=== PATIENT | male | born 1940 | race Caucasian/White ===

== ENCOUNTER 2022-02-23 00:03 | Inpatient (IN) | payer OTHER ==
[~2022-02-23] VITALS: Ht 185.4 cm; Wt 103.9 kg
[2022-02-23 00:24] VITALS: BP_SYST 124
--- NOTE | 2022-02-23 00:27 | NUR ---
Triaged pt and placed in waiting room until a bed becomes available. Dr. Aguilar notified. Pt is A&Ox4. VSS. Accompanied by .
--- NOTE | 2022-02-23 02:10 | NUR ---
Patient to ER bed 7 to gown for evaluation. Side rails up.
--- NOTE | 2022-02-23 02:32 | NUR ---
# 20 gauge angiocath placed to left forearm. Use of asceptic technique. Opsite placed over site. Blood return noted. Blood for lab drawn from site. Flushed with 10 cc of normal saline. No evidence of infiltration noted. Patient tolerated well.
--- NOTE | 2022-02-23 02:44 | NUR ---
Ila Jalloh at bedside examining patient.
[2022-02-23 03:05] LABS: BASOPHILS # (AUTO) 0.1 K/uL (0.0-0.2); BASOPHILS % (AUTO) 1.3 % (0.0-2.0); EOSINOPHILS # (AUTO) 0.3 K/uL (0.0-0.4); EOSINOPHILS % (AUTO) 3.4 % (0.0-4.0); HEMATOCRIT 40.3 % (36-54); HEMOGLOBIN 13.4 g/dL (14.0-18.0); LYMPHOCYTES # (AUTO) 1.5 K/uL (1.0-5.5); LYMPHOCYTES % (AUTO) 19.2 % (20.5-51.5); MEAN CORPUSCULAR HEMOGLOBIN 31 pg (27-31); MEAN CORPUSCULAR HGB CONC 33 % (32-36); MEAN CORPUSCULAR VOLUME 93 fL (79.0-98.0); MONOCYTES % (AUTO) 12.3 % (1.7-9.3); NEUTROPHILS # (AUTO) 5.2 K/uL (1.8-7.7); NEUTROPHILS % (AUTO) 63.8 % (40.0-70.0); PLATELET COUNT (AUTO) 329 K/uL (130-430); RED BLOOD CELL COUNT(AUTO) 4.32 MIL/uL (4.2-6.2); RED CELL DISTRIBUTION WIDTH 14.6 % (9.0-15.0); WHITE BLOOD COUNT (AUTO) 8.1 K/uL (4.8-10.8)
--- NOTE | 2022-02-23 03:07 | NUR ---
AEROBIC AND ANAEROBIC WOUND CULTURES TAKEN FROM PT AND SENT TO LAB FOR ANALYSIS
[2022-02-23 03:08] LABS: BILIRUBIN,URINE NEGATIVE (NEGATIVE); BLOOD, URINE NEGATIVE (NEGATIVE); CLARITY/URINE CLEAR (CLEAR); COLOR,URINE YELLOW (YELLOW); GLUCOSE,URINE 3+ (NEGATIVE); KETONES,URINE 2+ (NEGATIVE); LEUKOCYTE ESTERASE ,URINE NEGATIVE (NEGATIVE); NITRITE, URINE NEGATIVE (NEGATIVE); PH,URINE 5.5 (5.0-8.0); PROTEIN URINE NEGATIVE (NEGATIVE); UROBILINOGEN,URINE 0.2 (0.2-1.0)
[2022-02-23 03:24] LABS: ANION GAP 12 (5-15); CALCIUM 9.9 mg/dL (8.4-11.0); CHLORIDE 96 mmol/L (98-107); CREATININE 1.21 mg/dL (0.55-1.30); INR 0.9 (0.80-1.20); PROTHROMBIN TIME 9.9 SECS (9.5-12.5); UREA NITROGEN, BLOOD 18 mg/dL (8-21)
[2022-02-23 03:28] LABS: BACTERIA,URINE RARE /HPF (None Seen); RBC,URINE NONE SEEN /HPF (0-3); WBC,URINE NONE SEEN /HPF (0-3)
[2022-02-23 03:29] LABS: MUCUS,URINE None Seen /LPF (None Seen)
[2022-02-23] MEDS ORDERED: MORPHINE 4 MG INJ. 4 MG/ML VIAL IVP ONE ×3 (03:30→08:15)
[2022-02-23] MEDS ORDERED: VANCOMYCIN HCL 1,000 MG in NS 250 ML IV ONE (03:30)
[2022-02-23] MEDS ORDERED: PIPERACILLIN/TAZO 3.375 GM in NS 50 ML IV ONE (03:30)
[2022-02-23] MEDS ORDERED: VANCOMYCIN HCL 1000 MG/VIAL IV ONE (03:34)
[2022-02-23] MEDS ORDERED: PIPERACILLIN/TAZOBACTAM 3.375 GM/VIAL (ZOSYN) IV ONE (03:34)
[2022-02-23 03:35] LABS: ALANINE AMINOTRANSFERASE 12 U/L (12-78); ALBUMIN 2.9 g/dL (3.4-4.8); ASPARTATE AMINOTRANSFERASE 11 U/L (10-37); TOTAL BILIRUBIN 0.7 mg/dL (0.0-1.0)
[2022-02-23 03:36] LABS: GLUCOSE 528 mg/dL (70-99)
--- NOTE | 2022-02-23 03:55 | NUR ---
X-Ray at bedside.
[2022-02-23] MEDS ORDERED: INSULIN REGULAR, HUMAN 10 UNITS/0.1 ML, 3 ML VIAL SUBCUT ONE (04:00)
[2022-02-23] MEDS ORDERED: NACL 0.9% 1,000 ML IV ONE (04:00)
[2022-02-23 04:15] LABS: ERYTHROCYTE SEDIMENTATION RATE 56 MM/HR (0-15)
--- NOTE | 2022-02-23 04:17 | NUR ---
Ultrasound at bedside.
--- NOTE | 2022-02-23 05:28 | NUR ---
Accucheck done and results were 422.Dr. Aguilar made aware.
[2022-02-23] MEDS ORDERED: INSULIN REGULAR, HUMAN 10 UNITS/0.1 ML, 3 ML VIAL IVP ONE (06:00)
--- NOTE | 2022-02-23 06:03 | NUR ---
RT at bedside for ABG.
[2022-02-23 07:09] LABS: CALCIUM 8.7 mg/dL (8.4-11.0); GLUCOSE 340 mg/dL (70-99); UREA NITROGEN, BLOOD 14 mg/dL (8-21)
[2022-02-23 07:14] LABS: ANION GAP 8 (5-15); CHLORIDE 97 mmol/L (98-107)
[2022-02-23 07:23] LABS: ACETONE, SERUM NEGATIVE (NEGATIVE)
--- NOTE | 2022-02-23 07:27 | NUR ---
Critical lab call from Francisco Javier Alvarez @2.8 made aware
[2022-02-23] MEDS ORDERED: INSULIN REGULAR, HUMAN 100 UNITS/ML, 3 ML VIAL (humuLIN R) SUBCUT PRN (07:45)
--- NOTE | 2022-02-23 07:47 | NUR ---
Admit bed requested Patient will be admitted to care of Admitted to MedSurg unit. Diagnosis Cellulitis Inpatient (Yes or No) yes Observation (Yes or No) No Orientation concerns or request close to nursing station (Yes or No) No Covid Status Neg On vent or bipap No Isolation requirements None Needs a sitter No From Home (Yes or if No enter name of facility) Yes Requires Dialysis (Yes or No) No Med Rec Completed (Yes of No) No
--- NOTE | 2022-02-23 08:50 | NUR ---
Family to bring in medication list
[2022-02-23] MEDS ORDERED: ONDANSETRON HCL 4 MG/2 ML VIAL IVP PRN (09:00)
[2022-02-23] MEDS ORDERED: POTASSIUM CHLORIDE 20 MEQ/PKT PACKET PO ONE (09:00)
--- NOTE | 2022-02-23 09:26 | NUR ---
Patient will be admitted to care of Dr. Sunshine. Admitted to MedSurg unit. Will go to room 123B. Belongings list completed. Complete and up to date summary report printed. SBAR report to be given at bedside with opportunity for questions.
--- NOTE | 2022-02-23 09:54 | NUR ---
CONSULTATION PAGED REASON FOR CONSULTATION:CELLULITIS WAS CONSULT CALLED?Y PERSON WHO WAS NOTIFIED:TIM CONSULTING PHYSICIAN:ROB CARTY ROTARY VENEER MACHINE OPERATOR SPECIALTY:INFECTIOUS DISEASE ROTARY VENEER MACHINE OPERATOR PHONE NUMBER:[phone] REQUESTING PHYSICIAN:OLINDA BERRY
[2022-02-23 10:06] VITALS: BP_SYST 133
[2022-02-23 10:10] VITALS: BP_SYST 133
[2022-02-23] MEDS ORDERED: FLU VACC QS2022-23(6MOS UP)/PF 0.5 ML/SYR SYRINGE I.M. PRN (10:15)
[2022-02-23] MEDS ORDERED: KCL 20 mEq in 100 mL (PREMIX) 100 ML IV ONE (11:00)
[2022-02-23] MEDS ORDERED: VANCOMYCIN HCL 1,750 MG in NS 500 ML IV SCH (12:00)
[2022-02-23] MEDS ORDERED: PIPERACILLIN/TAZO 3.375/DEX-IS 50 ML IV SCH (12:00)
[2022-02-23] MEDS ORDERED: PIPERACILLIN/TAZO 3.375 GM in NS 50 ML IV SCH (14:00)
[2022-02-23] MEDS: FLUCONAZOLE 200 mg/ NS 100 ML IV SCH (14:16)
[2022-02-23] MEDS: ceFAZolin SODIUM 2 GM in D5W 100 ML IV SCH ×2 (14:18→22:51)
[2022-02-23] MEDS: INSULIN REGULAR, HUMAN 100 UNITS/ML, 3 ML VIAL (humuLIN R) SUBCUT PRN ×3 (14:27→22:53)
--- NOTE | 2022-02-23 19:34 | NUR ---
1030: ADMITTED FROM ER FOR BILATERAL LOWER EXTREMITIES CELLULITIS. NO S/S OF ANY ACUTE DISTRESS NOTED. ABLE TO VERBALIZE NEEDS NO C/O ANY PAIN OR DISCOMFORT @ THIS TIME. ABDOMEN SOFT AND NON-DISTENDED, POSITIVE BOWEL SOUND X 4 NO N/V OR DIARRHEA NOTED. SKIN WARM AND DRY INTACT, EDEMA BILATERAL LOWER EXTREMITIES, MORE ON RIGHT LOWER EXTREMITY. IV HEPLOCK FOR MED. 1400: ADMINISTERED MEDS ORDERED. WILL ASSESS FOR ANY ADVERSE REACTION. 1700: K REPLACEMENT AND MULTIPLE IV ANTIBIOTIC COMPLETED NO ADVERSE REACTION OR S/S OF HYPOKALEMIA NOTED. 1900: PATIENT TOLERATED PO WELL WITH GOOD APPETITE, TONIGHT FINGERSTICK 439, DR. Fredis KILGORE WAS NOTIFIED WITH NEW ORDER TO START LANTUS 10 UNIT SQ TONIGHT AND CONTINUE WITH SAME SLIDING SCALE. ENDORSED PATIENT TO PM SHIFT NURSE.
[2022-02-23 21:00] VITALS: BP_SYST 135
[2022-02-23] MEDS ORDERED: INSULIN GLARGINE 100 UNITS/ML, 10 ML VIAL SUBCUT SCH ×2 (21:00)
--- NOTE | 2022-02-24 | NUR ---
[facility] COLLECTED & SENT TO LAB .
[2022-02-24 01:00] VITALS: BP_SYST 133
[2022-02-24] MEDS: HYDROcodone/ACETAMIN 5-325 MG TAB (NORCO/ VICODIN) PO PRN ×4 (01:32→16:26)
--- NOTE | 2022-02-24 03:35 | NUR ---
NORCO TABLET PO GIVEN FOR GENERAL PAIN position change encouraged and helpful / .
--- NOTE | 2022-02-24 04:24 | NUR ---
WOUND CARE photo taken of Right foot area and put in medical Record .
[2022-02-24] MEDS: ceFAZolin SODIUM 2 GM in D5W 100 ML IV SCH ×2 (06:27→13:33)
[2022-02-24] MEDS: INSULIN REGULAR, HUMAN 100 UNITS/ML, 3 ML VIAL (humuLIN R) SUBCUT PRN ×3 (06:28→16:21)
[2022-02-24 07:16] LABS: BASOPHILS # (AUTO) 0.1 K/uL (0.0-0.2); EOSINOPHILS # (AUTO) 0.1 K/uL (0.0-0.4); EOSINOPHILS % (AUTO) 1.3 % (0.0-4.0); HEMATOCRIT 41.2 % (36-54); LYMPHOCYTES # (AUTO) 1.2 K/uL (1.0-5.5); LYMPHOCYTES % (AUTO) 12.9 % (20.5-51.5); MEAN CORPUSCULAR HEMOGLOBIN 31 pg (27-31); MEAN CORPUSCULAR HGB CONC 34 % (32-36); MEAN CORPUSCULAR VOLUME 92 fL (79.0-98.0); MONOCYTES # (AUTO) 1.2 K/uL (0.0-1.0); MONOCYTES % (AUTO) 13.7 % (1.7-9.3); NEUTROPHILS # (AUTO) 6.3 K/uL (1.8-7.7); NEUTROPHILS % (AUTO) 71.1 % (40.0-70.0); PLATELET COUNT (AUTO) 323 K/uL (130-430); RED BLOOD CELL COUNT(AUTO) 4.47 MIL/uL (4.2-6.2); RED CELL DISTRIBUTION WIDTH 14.6 % (9.0-15.0); WHITE BLOOD COUNT (AUTO) 8.9 K/uL (4.8-10.8)
[2022-02-24 08:03] LABS: ALANINE AMINOTRANSFERASE 8 U/L (12-78); ALBUMIN 2.4 g/dL (3.4-4.8); ANION GAP 12 (5-15); ASPARTATE AMINOTRANSFERASE 10 U/L (10-37); CALCIUM 9.3 mg/dL (8.4-11.0); CHLORIDE 98 mmol/L (98-107); CREATININE 1.19 mg/dL (0.55-1.30); GLUCOSE 292 mg/dL (70-99); TOTAL BILIRUBIN 0.5 mg/dL (0.0-1.0); UREA NITROGEN, BLOOD 13 mg/dL (8-21)
[2022-02-24 08:19] VITALS: BP_SYST 136
[2022-02-24] MEDS ORDERED: POTASSIUM CHLORIDE 20 MEQ/PKT PACKET PO ONE (11:00)
[2022-02-24 11:51] VITALS: BP_SYST 137
[2022-02-24] MEDS: FLUCONAZOLE 200 mg/ NS 100 ML IV SCH (12:28)
--- NOTE | 2022-02-24 15:26 | NUR ---
Called and daughter to get updated med list. There was no answer but left a message to call back with the information.
[2022-02-24] MEDS ORDERED: INSULIN GLARGINE 100 UNITS/ML, 10 ML VIAL SUBCUT ONE (15:45)
[2022-02-24 17:43] VITALS: BP_SYST 115
[2022-02-24] MEDS ORDERED: OMEP20CA15 PO (19:10)
[2022-02-24] MEDS ORDERED: CAPT25TA3 (19:11)
[2022-02-24] MEDS ORDERED: METF-518 PO (19:12)
[2022-02-24] MEDS ORDERED: METO2.5T6 PO (19:13)
[2022-02-24] MEDS ORDERED: ALLO100T PO (19:13)
[2022-02-24] MEDS ORDERED: CARV6.2554 PO (19:13)
[2022-02-24] MEDS ORDERED: LIP10 PO (19:14)
[2022-02-24] MEDS ORDERED: FURO-149 PO (19:14)
[2022-02-24] MEDS ORDERED: POTA-197 PO (19:15)
[2022-02-24] MEDS ORDERED: TOP25 PO (19:18)
[2022-02-24] MEDS ORDERED: APIX5TAB4 PO (19:19)
[2022-02-25] MEDS: HYDROcodone/ACETAMIN 5-325 MG TAB (NORCO/ VICODIN) PO PRN ×4 (00:04→20:59)
[2022-02-25] MEDS: INSULIN REGULAR, HUMAN 100 UNITS/ML, 3 ML VIAL (humuLIN R) SUBCUT PRN ×2 (00:13→21:06)
[2022-02-25] MEDS: INSULIN GLARGINE 100 UNITS/ML, 10 ML VIAL SUBCUT SCH ×3 (00:15→21:03)
[2022-02-25] MEDS: APIXABAN 2.5 MG TABLET PO SCH ×3 (00:17→21:08)
[2022-02-25] MEDS: ceFAZolin SODIUM 2 GM in D5W 100 ML IV SCH ×4 (00:20→21:53)
--- NOTE | 2022-02-25 07:20 | NUR ---
RECEIVED REPORT ON PATIENT FROM JODI ROTH, ASSUMED CARE, AND STARTED ASSESSMENT.
[2022-02-25 08:00] VITALS: BP_SYST 149
[2022-02-25 08:50] LABS: ANION GAP 9 (5-15); CALCIUM 9.4 mg/dL (8.4-11.0); CHLORIDE 99 mmol/L (98-107); CREATININE 1.43 mg/dL (0.55-1.30); GLUCOSE 275 mg/dL (70-99); UREA NITROGEN, BLOOD 16 mg/dL (8-21)
--- NOTE | 2022-02-25 11:11 | NUR ---
Dietitian recommendations: 1. Continue [facility] diet. 2. Encourage PO intake. 3. Consider multivitamin and vitamin C to support healing. Please refer to nutrition assessment for details. ANGEL CULVER
[2022-02-25] MEDS: FLUCONAZOLE 200 mg/ NS 100 ML IV SCH (13:22)
--- NOTE | 2022-02-25 19:20 | NUR ---
REPORT GIVEN TO JODI TATE, AND CARE WAS TURNED OVER TO HER.
[2022-02-25 19:45] VITALS: BP_SYST 149
[2022-02-25 20:00] VITALS: BP_SYST 149
[2022-02-26] MEDS: HYDROcodone/ACETAMIN 5-325 MG TAB (NORCO/ VICODIN) PO PRN ×2 (02:53→21:43)
[2022-02-26 04:00] VITALS: BP_SYST 150
[2022-02-26] MEDS: ceFAZolin SODIUM 2 GM in D5W 100 ML IV SCH ×3 (05:35→21:43)
[2022-02-26] MEDS: INSULIN REGULAR, HUMAN 100 UNITS/ML, 3 ML VIAL (humuLIN R) SUBCUT PRN ×4 (06:24→21:54)
--- NOTE | 2022-02-26 07:03 | NUR ---
RECEIVED REPORT ON PATIENT FROM JODI TATE, ASSUMED CARE, AND STARTED ASSESSMENT.
[2022-02-26 08:00] VITALS: BP_SYST 148
[2022-02-26] MEDS: APIXABAN 2.5 MG TABLET PO SCH ×2 (09:08→21:57)
[2022-02-26] MEDS: INSULIN GLARGINE 100 UNITS/ML, 10 ML VIAL SUBCUT SCH ×2 (09:09→21:57)
[2022-02-26 11:46] VITALS: BP_SYST 151
[2022-02-26] MEDS: FLUCONAZOLE 200 mg/ NS 100 ML IV SCH (13:19)
[2022-02-26 16:59] VITALS: BP_SYST 143
--- NOTE | 2022-02-26 19:09 | NUR ---
REPORT GIVEN TO JODI TATE, AND CARE WAS TURNED OVER TO HER.
[2022-02-26 20:00] VITALS: BP_SYST 156
[2022-02-27 04:00] VITALS: BP_SYST 144
[2022-02-27] MEDS: ceFAZolin SODIUM 2 GM in D5W 100 ML IV SCH (06:00)
[2022-02-27] MEDS: INSULIN REGULAR, HUMAN 100 UNITS/ML, 3 ML VIAL (humuLIN R) SUBCUT PRN ×3 (06:19→16:48)
[2022-02-27] MEDS: APIXABAN 2.5 MG TABLET PO SCH ×2 (09:09→20:13)
[2022-02-27] MEDS: HYDROcodone/ACETAMIN 5-325 MG TAB (NORCO/ VICODIN) PO PRN ×3 (09:12→22:35)
[2022-02-27] MEDS: INSULIN GLARGINE 100 UNITS/ML, 10 ML VIAL SUBCUT SCH ×2 (09:19→20:19)
[2022-02-27 11:19] VITALS: BP_SYST 126
--- NOTE | 2022-02-27 11:35 | NUR ---
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 PT STATES THAT HE HAS A PIN IN R FOOT BUT DOES NOT KNOW HOW IT GOT THERE. DR. KILGORE AWARE. NO NEW ORDERS AT THIS TIME.
[2022-02-27] MEDS: CEFEPIME 2 GM in D5W 100 ML IV SCH (12:17)
[2022-02-27] MEDS: FLUCONAZOLE 200 mg/ NS 100 ML IV SCH (13:46)
--- NOTE | 2022-02-27 17:15 | NUR ---
PATIENT IS RESTING IN BED, AAO x4, RESPIRATIONS EVEN AND UL ON RA. MEDICATED WITH PRN NORCO FOR PAIN TO LE. ALL NEEDS MET AT THIS TIME. CALL LIGHT IN REACH, SAFETY MEASURES IN PLACE. DAUGHTER AT BEDSIDE.
[2022-02-27 17:37] VITALS: BP_SYST 135
--- NOTE | 2022-02-27 19:15 | NUR ---
PATIENT RESTING IN BED, RESPIRATIONS EVEN AND UL ON RA, DENIES PAIN/DISCOMFORT. PT REMAINS STABLE. ALL NEEDS MET. BED IN LOW, SIDE RAILS x2, CALL LIGHT IN REACH. REPORT GIVEN TO PM NURSE FOR CONTINUITY OF CARE.
[2022-02-27 20:00] VITALS: BP_SYST 128
--- NOTE | 2022-02-27 23:57 | NUR ---
Patient in bed. No acute distress noted. Turned repositioned q2. Will continue to monitor.
[2022-02-28 04:00] VITALS: BP_SYST 153
[2022-02-28] MEDS: MORPHINE 4 MG INJ. 4 MG/ML VIAL IVP PRN ×2 (04:11→14:14)
[2022-02-28 08:00] VITALS: BP_SYST 133
[2022-02-28] MEDS: APIXABAN 2.5 MG TABLET PO SCH ×2 (09:02→20:16)
[2022-02-28] MEDS: INSULIN GLARGINE 100 UNITS/ML, 10 ML VIAL SUBCUT SCH ×2 (09:03→21:00)
[2022-02-28] MEDS: HYDROcodone/ACETAMIN 5-325 MG TAB (NORCO/ VICODIN) PO PRN (09:05)
[2022-02-28] MEDS: CEFEPIME 2 GM in D5W 100 ML IV SCH (11:34)
[2022-02-28] MEDS: INSULIN REGULAR, HUMAN 100 UNITS/ML, 3 ML VIAL (humuLIN R) SUBCUT PRN ×2 (11:39→17:40)
[2022-02-28 12:00] VITALS: BP_SYST 138
[2022-02-28] MEDS: FLUCONAZOLE 200 mg/ NS 100 ML IV SCH (14:12)
[2022-02-28 15:27] VITALS: BP_SYST 138
--- NOTE | 2022-02-28 18:52 | NUR ---
HCP AFTER HOURS CALLED AND SPOKE WITH AFTER HOURS AND RSI WILL BE HERE TO PUTTY AND PATCH WORKER BETWEEN [phone]
[2022-02-28 20:00] VITALS: BP_SYST 124
--- NOTE | 2022-02-28 21:48 | NUR ---
CALLED HCP TO FOLLOW UP AMBULANCE WILL BE ANOTHER 90 MIN. CALLED DTR TO UPDATE HER
--- NOTE | 2022-02-28 22:55 | NUR ---
Patient in bed. No acute distress noted. Blood sugar 230. Patient did not eat his dinner. Roommate stated, I ate his tray. Insulin held.
--- NOTE | 2022-03-01 01:17 | NUR ---
Call placed to [facility]. Facility will stiil accept the patient .
--- NOTE | 2022-03-01 01:24 | NUR ---
Transportation here to transfer the patient to [facility].
== END 2022-03-01 01:30 | DRG 603 ==
LOC: SED 00:03 → SMU 07:33
PROVIDERS: ADMIT Specialist; ATTEND Specialist
DX: L03.115 Cellulitis of right lower limb (principal); E44.0 Moderate protein-calorie malnutrition; E87.6 Hypokalemia; E11.621 Type 2 diabetes mellitus with foot ulcer; Z20.822 Contact with and (suspected) exposure to COVID-19; E78.00 Pure hypercholesterolemia, unspecified; I87.2 Venous insufficiency (chronic) (peripheral); I11.0 Hypertensive heart disease with heart failure; I50.9 Heart failure, unspecified; Z86.718 Personal history of other venous thrombosis and embolism; Z79.01 Long term (current) use of anticoagulants; Z83.3 Family history of diabetes mellitus; Z68.30 Body mass index [BMI] 30.0-30.9, adult
CPT/HCPCS: 36415; 71045; 73590-TC; 80048; 80053; 81000; 82009; 82803-TC; 82962; 83036; 83605; 84484; 85025; 85610-TC; 85651-TC; 85730-TC; 87040; 87070-TC; 87075-TC; 87081; 87086; 87186-TC; 93005; 93922; 93970; 94640; 96365; 96366; 96368; 96375; 99285; J0692; J1450; J1815; J2270; J2543; J3370; J3480; J7030; J7040; J7060